=== PATIENT | female | born 1945 | race African-American/Black ===

== ENCOUNTER 2016-10-04 12:08 | Inpatient (IN) | payer OTHER ==
--- NOTE | ~2016-10-04 | CO ---
Unit #: [id number] #: [id number] Patient: CHASTITY BARRAGAN [id number] [facility]. [place], [place] [address] [id number] I MR#: [id number] NAME: CHASTITY BARRAGAN ROOM: [facility] Age: 71 Sex: F Admission Date: 10/04/2016 : 1945 Attending Physician: Nancy Gil M.D. CONSULTATION REPORT HISTORY OF PRESENT ILLNESS She is a 71-year-old female consulted to me with complaints of elevated hemoglobin. She is very pleasant lady with a history of hypertension and asthma, who came to the emergency room with shortness of breath and chest pain. This has been progressed over few days. 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 She has been having pain on the right side radiating to the back associated with worsening shortness of breath. She has had problems with this pain starting two years ago. At that time, she had severe pain in the right side of her chest radiating to the back, with tachycardia and shortness of breath. She did not seek treatment for that. Eventually, the pain went away. She has had progressive shortness of breath and came into the hospital to be evaluated. In the hospital emergency room, she was evaluated by CT scan and no pulmonary embolus was seen; although, she had marked right-sided heart dilation and was noted to have an elevated hemoglobin and was admitted. Additionally, she was hypoxic in the emergency room, the sats were 55% on room air and she is admitted for care. PAST MEDICAL HISTORY 1. Hypertension. 2. Asthma, that have been documented. PAST SURGICAL HISTORY None. ALLERGIES No known drug allergies. MEDICATIONS None. SOCIAL HISTORY No history of tobacco use. No alcohol use. No drug use. She has a supportive family, son and daughter with her. FAMILY HISTORY Positive for hypertension. REVIEW OF SYSTEMS Positive; 1. For the shortness of breath. 2. Positive for the right-sided discomfort especially right upper quadrant and back discomfort. Unit #: [id number] #: [id number] Patient: CHASTITY BARRAGAN 12-points is otherwise negative on the review of systems except for some scleral icterus. PHYSICAL EXAMINATION GENERAL: Shows a well-developed, well-nourished lady, in no acute distress. VITAL SIGNS: Her pulse is 112, respirations are 22, she had a pressure currently of 100 systolic. LUNGS: Show decreased breath sounds. HEENT: Eyes do show some scleral icterus. Pupils are equal. Mouth is moist. Hearing is intact. NECK: Shows normal JVD, increased JVP in the neck. ABDOMEN: Bit distended. May be some ascites as well; although, that is questionable. It is not definitive. EXTREMITIES: No clubbing noted. She has cool extremities. NEUROLOGIC: She is awake, alert, and oriented to person, place, and time. PSYCHIATRIC: Normal mood, judgment, and affect, and insight. ASSESSMENT 1. A very pleasant lady with a diagnosis of chest pain, but looks like a right-sided heart failure. 2. She has an elevated hemoglobin and history of asthma and we have ordered test to look for polycythemia; although, her white count was normal. Her platelets are low. This certainly does not look like somebody, who has an active myeloproliferative and we are going to check the labs to prove that before we start with phlebotomy. 3. She has low platelets and I wonder about liver disease in her and a bit of hypertension, , and we will work this up. PLAN 1. Plan is to see if we can get her worked up for the polycythemia. 2. We are going to go ahead and workup the low platelets to see if we can get answer there. I would like to thank everyone for the consult. Dictated by... Frederick Morales M.D. SHREE/bridgett TD: 10/06/2016 13:05 JOB #: [id number] CONSULTATION REPORT X X CONSULTATION REPORT
--- NOTE | ~2016-10-04 | US5 ---
[facility] A Service of [facility] RADIOLOGY TEXT RESULTS PATIENT: CHASTITY BARRAGAN LOCATION: CICCU3 CICCU3-20 : [birth year] UNIT #: [id number] AGE: [address]: Nancy Gil MD SEX: F ORDER DR: [id number] [facility] [address] [facility]. [place], [place] [address] [id number] I MR#: [id number] #: [id number] NAME: CHASTITY BARRAGAN : 1945 SEX: F STUDY DATE/TIME: 10/06/2016 8:35 UNIT: C3A PCU ROOM: [facility] STUDY DESCRIPTION: US Abdominal Complete Attending Physician: Nancy Gil M.D. Ordering Physician: Frederick Morales M.D. Primary Care Physician: Primary Care Physician No MEDICAL IMAGING REPORT This report is preliminary unless electronic signature is present EXAM Abdominal ultrasound INDICATION Elevated liver enzyme levels. PROCEDURE Lambert-scale and Doppler imaging of the abdomen. COMPARISON None FINDINGS Submitted images of abdominal aorta and IVC unremarkable. Visualized portions of pancreas unremarkable. The liver measures 14.6 cm. Right kidney measures 11.4 cm. Sludge in the gallbladder. Gallbladder wall measures 4.0-5.0 mm in thickness. Left kidney measures 11.0 cm. No hydronephrosis. Spleen measures 8.7 cm. Question sludge in the gallbladder, with mild gallbladder wall thickening which is nonspecific. Correlate for any clinical suspicion of acute cholecystitis. The common duct is not well seen on this study but is not visually dilated. Dictated by... Cyril Ware M.D. THIS IS AN ELECTRONICALLY VERIFIED REPORT Cyril Ware M.D. at 10/06/2016 4:52 PM JACQUELINE/alana TD: 10/06/2016 11:37 JOB #: [id number] [facility] A Service [facility] RADIOLOGY TEXT RESULTS PATIENT: CHASTITY BARRAGAN LOCATION: CICCU3 CICCU3-20 : [birth year] UNIT #: [id number] AGE: [address]: Nancy Gil MD SEX: F ORDER DR: MEDICAL IMAGING REPORT COPY
--- NOTE | ~2016-10-04 | EKG ---
PATIENT: CHASTITY BARRAGAN UNIT #: [id number] Ventricular Rate: 101 BPM Atrial Rate: 101 BPM P-R Interval: 188 ms QRS Duration: 74 ms Q-T Interval: 366 ms QTC Calculation(Bezet): 474 ms P [place]: 37 degrees Calculated R [place]: 103 degrees Calculated T [place]: 0 degrees Diagnosis Line: Sinus tachycardia Diagnosis Line: Rightward axis Diagnosis Line: T wave abnormality, consider anterior ischemia Diagnosis Line: Abnormal ECG Diagnosis Line: When compared with ECG of 04-OCT-2016 11:28, Diagnosis Line: (unconfirmed) Diagnosis Line: T wave inversion less evident in Inferior leads Diagnosis Line: Nonspecific T wave abnormality no longer evident Diagnosis Line: in Lateral leads Diagnosis Line: Confirmed by MELVINA GARCIA MD ([id number]) on Diagnosis Line: 10/05/2016 10:54:58 PM INTERPRETING MD: CHELLE
--- NOTE | ~2016-10-04 | CR72 ---
[facility] A Service of [facility] RADIOLOGY TEXT RESULTS PATIENT: CHASTITY BARRAGAN LOCATION: [facility] : [birth year] UNIT #: [id number] AGE: [address]: JOHANA YODER MD SEX: F ORDER DR: [id number] [facility]. [place], [place] [address] [id number] I MR#: [id number] Acc #: [id number] NAME: CHASTITY BARRAGAN : 1945 SEX: F STUDY DATE/TIME: 10/04/2016 11:43 UNIT: [facility] PCU ROOM: [facility] STUDY DESCRIPTION: CR Chest Single View Portable Attending Physician: Johana Yoder M.D. Ordering Physician: Chidi Dupree M.D. Primary Care Physician: No Primary Care Physician MEDICAL IMAGING REPORT This report is preliminary unless electronic signature is present EXAM AP portable chest. DATE OF EXAM 10/04/2016 HISTORY 71-year-old female in the ED complaining of 4-day history of shortness of air, chest pain, cough and weakness. TECHNIQUE AP portable upright chest x-ray. FINDINGS The exam shows shallow lung expansion with minimal bibasilar atelectasis. Lungs otherwise clear. No visible airspace consolidation or pleural effusion. Mild cardiomegaly. IMPRESSION 1. No definite active disease. 2. Mild cardiomegaly. Dictated by... Tay Dobbs M.D. THIS IS AN ELECTRONICALLY VERIFIED REPORT Tay Dobbs M.D. at 10/05/2016 5:55 AM JIM/hansa TD: 10/04/2016 15:17 JOB #: [id number] MEDICAL IMAGING REPORT [facility] A Service of [facility] RADIOLOGY TEXT RESULTS PATIENT: CHASTITY BARRAGAN LOCATION: [facility] : 47 UNIT #: [id number] AGE: [address]: JOHANA YODER MD SEX: F ORDER DR: COPY
--- NOTE | ~2016-10-04 | EKG ---
PATIENT: CHASTITY BARRAGAN UNIT #: [id number] Ventricular Rate: 98 BPM Atrial Rate: 98 BPM P-R Interval: 172 ms QRS Duration: 68 ms Q-T Interval: 346 ms QTC Calculation(Bezet): 441 ms P [place]: 69 degrees Calculated R [place]: 84 degrees Calculated T [place]: 18 degrees Diagnosis Line: Normal sinus rhythm Diagnosis Line: Possible Left atrial enlargement Diagnosis Line: T wave abnormality, consider anterior ischemia Diagnosis Line: Abnormal ECG Diagnosis Line: No previous ECGs available Diagnosis Line: Confirmed by SPIKE RAMÍREZ MD ([id number]) on Diagnosis Line: 10/14/2016 3:55:48 PM INTERPRETING MD: DESIREE VAZQUEZ
--- NOTE | ~2016-10-04 | EKG ---
PATIENT: CHASTITY BARRAGAN UNIT #: [id number] Ventricular Rate: 82 BPM Atrial Rate: 82 BPM P-R Interval: 148 ms QRS Duration: 80 ms Q-T Interval: 448 ms QTC Calculation(Bezet): 523 ms P [place]: 73 degrees Calculated R [place]: 89 degrees Calculated T [place]: 21 degrees Diagnosis Line: Normal sinus rhythm Diagnosis Line: Right atrial enlargement Diagnosis Line: T wave abnormality, consider inferior ischemia Diagnosis Line: T wave abnormality, consider anterior ischemia Diagnosis Line: Prolonged QT Diagnosis Line: Abnormal ECG Diagnosis Line: When compared with ECG of 05-OCT-2016 07:49, Diagnosis Line: Nonspecific T wave abnormality now evident in Diagnosis Line: Lateral leads Diagnosis Line: Confirmed by MICHELLE HIGGINBOTHAM MD ([id number]) on 10/06/2016 Diagnosis Line: 7:11:14 AM INTERPRETING MD: ANAHY VAZQUEZ
--- NOTE | ~2016-10-04 | CO ---
Unit #: [id number] #: [id number] Patient: CHASTITY BARRAGAN [id number] [facility]. [place], [place] [address] [id number] I MR#: [id number] NAME: CHASTITY BARRAGAN ROOM: 337 Age: 71 Sex: F Admission Date: 10/04/2016 : 1945 Attending Physician: Marcelina Yoder M.D. Consultation Date: 10/04/2016 CONSULTATION REPORT REASON FOR CONSULTATION Elevated troponin. HISTORY OF PRESENT ILLNESS This is a 71-year-old female admitted with chest pain that occurred about 4 days ago and localized to her right anterior chest underneath her right breast and radiated to her back and it did radiate to her right neck. She had associated shortness of breath, however, no nausea, no vomiting, no diaphoresis, no syncope, but did complain of some dizziness. She came over from [place]. She is from [facility] in [facility] [place] [facility] and she came to the [facility] in 04/2007 and has been living in [place] up until last 10/2015 where she moved to [place]. She has only known history of hypertension. She was on medication for her high blood pressure, however, due to some financial insurance issues, she is currently not on any blood pressure medicine. She is a non-Romanian speaking patient and she does speak Swahili. Her home language is [place], however, there was no government relations analyst used as her family interpreted for my interview. She reported to me all her symptoms started about 4 days ago, she had chest pain that occurred mostly on her right side under her right breast and right side of her neck and then that occurred for 4 days and she started having coughing about 2 days ago also had stomachache and generalized pain especially to her back between her shoulder blade area that was worse with coughing. She reports her pain is sharp and stabbing in nature and it is worse with exertion. It began around 6:00 or 7:00 in the morning 4 days ago on 09/30/2016. She had just woken up and had gone into the bathroom to get ready and when the pain started, it made worse with coughing and made worse with movement. She rested at home and the pain was unrelieved for about a day and a half before it got worse due to her developing cough. She rated her pain as 7/10. She had no shortness of breath with that. No cardiac workup that I can find on record review. She did not follow up with doctor. HOME MEDICATIONS None. ALLERGIES No known drug allergies. FAMILY HISTORY She was from her family in [place] in 1971 and has not seen her family, so her family history is completely unknown to her. Unit #: [id number] #: [id number] Patient: CHASTITY BARRAGAN SOCIAL HISTORY She is a very inactive at home and has become more inactive over the last couple of months. Her son reported that she never really gets out of the house and walk much, but she does do light housework around the house with no problems. She is a never smoker and does deny any alcohol and illicit drug use. REVIEW OF SYSTEMS As noted above in the HPI. PHYSICAL EXAMINATION VITAL SIGNS: Temperature 98.3, pulse 100, respiratory rate of 20, blood pressure of 171/100. GENERAL: She is sitting up in bed, in no acute distress. Family is present. NECK: Supple with JVD noted. No carotid bruits noted. HEENT: Head is normocephalic, atraumatic with oral mucosal membranes pink and moist. Pupils are equal, round, and reactive to light and accommodation. SKIN: Cool. CHEST: Shows bilateral rhonchi and rales in the bases. CARDIOVASCULAR: She has S1, S2. Regular rate and rhythm. No murmurs, gallops, or rubs noted. ABDOMEN: Distended and tender to her right quadrant. No hepatomegaly. No hepatojugular reflux. EXTREMITIES: Have very weak pulses and no leg edema noted. DIAGNOSTIC STUDIES IMAGING STUDIES: Single view of chest x-ray on 10/04/2016, no definite active disease, mild cardiomegaly. CT of the chest to rule out PE was done on 10/05/2016 to note was negative for PE, but did show evidence of inflammatory and obstructive airway disease with central bronchial wall thickening, mild multifocal air trapping, and possible mild mucoid opacification of a central left lower lobe bronchi. Heart size was normal. There was no pericardial effusion to note. CARDIOVASCULAR STUDIES: EKG shows sinus tachycardia with rightward axis, T-wave abnormality, which is T-wave inversion in the lateral leads, rate of 111. LABORATORY RESULTS: Include a BNP of 519. Troponin of 0.52. Sodium 140, potassium 4.5, chloride 93, CO2 is 40, BUN 40, creatinine 1, glucose 214, elevated LFT including AST of 342, ALT of 273, alkaline phosphatase 99, cholesterol 123, triglycerides 181, LDL 71, HDL 16. D-dimer elevated at 2582. Ibuyz-bp-vqms troponin in the ER was 0.23. WBC 9.4, hemoglobin 17.4, hematocrit 56.6, platelet count 109. Influenza A and B were both checked and both negative. IMPRESSION 1. Acute coronary syndrome. 2. New-onset of congestive heart failure. 3. Elevated D-dimer, but pulmonary embolism has been ruled out. 4. Polycythemia with unknown etiology. 5. Peripheral arterial disease with no very weak to absent pedal pulses. 6. Hepatic congestion. PLAN Unit #: [id number] #: [id number] Patient: CHASTITY BARRAGAN Cardiology is treating this as an acute coronary syndrome with elevated troponin, but all troponins have been less than 0.5. We planned to do a right and left heart cath on her on Thursday10/06/2016 and we ordered a 2D echo, which showed an EF of 60%, mild LVH, grade 1 diastolic dysfunction, severely enlarged right atrium, moderately enlarged right ventricle with an RVSP of 64 consistent with severe pulmonary hypertension, aortic valve leaflets are sclerotic with no stenosis, tricuspid valve is normal, vduzgnnf-nc-brywyz tricuspid regurgitation, no evidence of any pericardial effusion. We will start her on full coagulation including aspirin and statin and control her hypertension with beta-alma and lisinopril. Hematology has been consulted and is now following as is GI. Hematology consulted for polycythemia. We will give her gentle diuresis with Lasix and continue to follow her through hospitalization. Thank you for this consult. Dictated by... Katy Winston APRN for Td Johnson TD: 10/06/2016 03:20 JOB #: [id number] CONSULTATION REPORT X X CONSULTATION REPORT
--- NOTE | ~2016-10-04 | HP ---
Unit #: [id number] #: [id number] Patient: CHASTITY BARRAGAN [id number] [address] [id number] I MR#: [id number] NAME: CHASTITY BARRAGAN ROOM: 337 Age: 71 Sex: F Admission Date: 10/04/2016 : 1945 Attending Physician: Marcelina Yoder M.D. Primary Care Physician: No Primary Care Physician HISTORY AND PHYSICAL CHIEF COMPLAINT Shortness of breath and dyspnea. HISTORY OF PRESENT ILLNESS The patient is a 71-year-old -[place] Zeal[place] female with history of hypertension and asthma, brought to the emergency room complaining of worsening shortness of breath. The patient speaks the language [place] and the history is obtained by speaking to the patient's son at the bedside and speaking with the ER physician and RN. The patient has been in the [facility] for the last nine years. The patient has been having sharp chest pain mainly on the right side radiating to the back associated with worsening shortness of breath. The patient was unable to tolerate the worsening shortness of breath this morning and presented to the emergency room. The patient was found to be hypoxic in the emergency room with sats 55% at room air and they went up to 90% with four liters of nasal cannula. The patient also complains of chest pain and denies any productive cough. The patient is being admitted for the above reason. The patient denies any fever, chills, nausea. The patient vomited times only once. The patient denies any palpitation or diaphoresis. PAST MEDICAL HISTORY History of hypertension and asthma. PAST SURGICAL HISTORY None. ALLERGIES No allergies. HOME MEDICATIONS None. SOCIAL HISTORY No history of smoking cigarettes and drinking alcohol, any illicit drug abuse. FAMILY HISTORY Positive for high blood pressure. REVIEW OF SYMPTOMS A 14-point review of symptoms was performed and only pertinent positives findings are described above, remaining are negative. PHYSICAL EXAMINATION Unit #: [id number] #: [id number] Patient: CHASTITY BARRAGAN GENERAL APPEARANCE: The patient is sitting on the bedside not in acute distress. VITAL SIGNS: Temperature 98.3. Pulse 112. Respiratory 20. Blood pressure 167/85. Sating 55% at room air and went up to 90% with four liters of nasal cannula. HEENT: Head: Atraumatic, normocephalic. Pupils equal, round and reacting to light and accommodation. Extraocular movements are intact. Dry mucous membrane. NECK: Supple. LUNGS: Decreased air entry at the bases. Positive for wheezing at the right side and positive questionable rub at the right lower base. HEART: Regular rate and rhythm. Positive for murmurs. ABDOMEN: Soft. Positive bowel sounds. EXTREMITIES: No cyanosis. No clubbing. NEUROLOGIC: Alert, awake, oriented. No gross focal motor deficit. DIAGNOSTIC STUDIES LABORATORY: Glucose 214, BUN 40, creatinine one, sodium 140, potassium 4.5, chloride 93, bicarb 40, albumin 3.1, direct bilirubin 0.4, AST 342, ALT 273, alkaline phosphatase 99. BNP 519. Troponin 0.23. WBC 9.4, hemoglobin 17.4, hematocrit 56.6, platelets 109. IMAGING: Chest x-ray shows no definite active disease, mild cardiomegaly. CARDIOVASCULAR: EKG shows sinus tachycardia at a rate of 111 beats per minute and the OK interval of 142. T wave abnormal in the inferior leads concerning for the acute coronary syndrome and the QTC of 443. ASSESSMENT 1. Chest pain, likely active coronary syndrome. 2. Hypoxia with asthma exacerbation, 55% at room air. 3. Hypertension. 4. Questionable polycythemia. PLAN Admit the patient to inpatient with telemetry. Continue with ACS protocol with Lovenox 1 mg/kg and aspirin and beta alma with metoprolol, lisinopril and a statin. The patient is scheduled for the cath on Thursday and continue with the pain medication with morphine. The patient will be continuing on Solu-Medrol and DuoNeb and check the D-dimer to rule out PE and echocardiogram in the morning. I appreciate Cardiology consult. Continue with the troponins serially and sliding scale low dose and further recommendations will follow as more lab results are available. Dictated by Td Guerrero TD: 10/04/2016 17:31 JOB #: [id number] Unit #: [id number] #: [id number] Patient: CHASTITY BARRAGAN HISTORY AND PHYSICAL X X HISTORY AND PHYSICAL
--- NOTE | ~2016-10-04 | CO ---
Unit #: [id number] #: [id number] Patient: CHASTITY BARRAGAN [id number] [place], [place] [address] [id number] I MR#: [id number] NAME: CHASTITY BARRAGAN ROOM: 337 Age: 71 Sex: F Admission Date: 10/04/2016 : 1945 Attending Physician: Marcelina Yoder M.D. Consultation Date: 10/04/2016 CONSULTATION REPORT REASON FOR CONSULTATION Hypoxia. HISTORY OF PRESENT ILLNESS This is a pleasant 71-year-old female from [facility], who presented to the emergency room with a few day history of shortness of breath and coughing with no sputum production. Patient has had some sore throat but no fever or chills. Patient never smoked but she was diagnosed with asthma many years ago. She used to be on some inhalers but not anymore. Last asthma attack was in 1996. In the emergency room, patient was found to be severely hypoxic with saturations in the mid 50s. She is currently on four liters nasal cannula, and she appears more comfortable. REVIEW OF SYSTEMS A 12-point review of systems was obtained and was negative except for what was mentioned in the History of Present Illness. PAST MEDICAL HISTORY 1. Hypertension. 2. Asthma. PAST SURGICAL HISTORY None. ALLERGIES No known drug allergies. HOME MEDICATIONS Patient has no insurance and does not take any medication. SOCIAL HISTORY No history of alcohol, drug abuse, or smoking. FAMILY HISTORY Hypertension. PHYSICAL EXAMINATION GENERAL: The patient is currently in bed and comfortable. Her is at bedside, and I spoke to her through an diplomatic interpreter/translator. VITAL SIGNS: Temperature 97.8, respiratory rate 21, and O2 saturation 93% on 4 liters nasal cannula. HEENT: Atraumatic, normocephalic. PERRLA. EOMI. NECK: Supple. No JVD. No lymphadenopathy. CHEST: Decreased breath sounds bilaterally with bilateral wheezing and Unit #: [id number] #: [id number] Patient: CHASTITY BARRAGAN some mild rhonchi at the bases. HEART: S1 and S2. No murmur, gallops, or rubs. ABDOMEN: Soft, nontender. Bowel sounds are positive. No hepatosplenomegaly. EXTREMITIES: No edema or cyanosis. SKIN: No rashes. CENTRAL NERVOUS SYSTEM: Awake and alert. No focal motor/sensory deficits. DIAGNOSTIC STUDIES LABORATORY: Creatinine 0.9, potassium 5.6, and bicarb 33. White blood count 9.4 and hemoglobin 17.4. IMAGING: Chest x-ray is negative for infiltrate. ASSESSMENT 1. Acute hypoxic respiratory failure. 2. Asthma exacerbation. 3. Hypertension. 4. Erythrocytosis. 5. Cardiomegaly. PLAN 1. Patient is hemodynamically stable on nasal cannula. Her baseline is room air. 2. I will titrate the oxygen down as tolerated. 3. Bronchodilator, IV steroids, and mucolytics. 4. IV antibiotics. 5. A 2D echocardiogram to evaluate for pulmonary hypertension. 6. DVT prophylaxis. 1. Dictated by... Td Abbasi TD: 10/05/2016 21:34 JOB #: [id number] CONSULTATION REPORT X PASCALE BRIDGES MD X CONSULTATION REPORT
--- NOTE | ~2016-10-04 | EKG ---
PATIENT: CHASTITY BARRAGAN UNIT #: [id number] Ventricular Rate: 111 BPM Atrial Rate: 111 BPM P-R Interval: 142 ms QRS Duration: 74 ms Q-T Interval: 326 ms QTC Calculation(Bezet): 443 ms P Nolan: 72 degrees Calculated R Nolan: 85 degrees Calculated T Nolan: -84 degrees Diagnosis Line: Sinus tachycardia Diagnosis Line: Right atrial enlargement Diagnosis Line: Poor R wave progression questionable lead position Diagnosis Line: or body habitus Diagnosis Line: Nonspecific T wave abnormality Diagnosis Line: Abnormal ECG Diagnosis Line: No previous ECGs available Diagnosis Line: Confirmed by MELVINA GARCIA MD ([id number]) on Diagnosis Line: 10/05/2016 10:43:10 PM INTERPRETING MD: CHELLE
--- NOTE | ~2016-10-04 | DS ---
Unit #: [id number] #: [id number] Patient: CHASTITY BARRAGAN [id number] [facility]. [place], [place] [address] [id number] I MR#: [id number] NAME: CHASTITY BARRAGAN ROOM: 338 Age: 71 Sex: F Admission Date: 10/04/2016 : 1945 Discharge Date: 10/13/2016 Attending Physician: Max Witt M.D. DISCHARGE SUMMARY HISTORY OF PRESENT ILLNESS AND HOSPTIAL COURSE Please see H and P for complete details of initial part of hospital stay. The patient was originally admitted secondary to shortness of breath as well as the dyspnea. She does have a language barrier and only speaks Swahili and therefore was difficult in the initial part of her hospital stay for appropriate history. However, she had stated that she had developed chest pain as well as difficulty with breathing for approximately 4 to 5 days prior to admission. In regard to the same, consultation was placed to Dr. Dillon. She underwent routine laboratory studies, which did reveal elevated troponins as well as concern for polycythemia. A consultation was placed to Dr. Terry secondary to respiratory distress as well. The patient eventually was placed in the ICU secondary to respiratory distress. She underwent a 2D echocardiogram, which had revealed ejection fraction 60% with severe tricuspid regurgitation as well as right-sided increased pulmonary pressures and pulmonary hypertension. There was a questionable left to right intracardiac shunt, which was noted. Services continue to follow the patient through her hospital course on 10/06/2016. She underwent cardiac catheterization at the recommendation of Dr. Roberson, which was normal coronaries. Afterwards she began developing post cardiac cath respiratory distress. She was intubated and placed on BiPAP afterwards as well as transition on nasal cannula and subsequently room air. It seems likely that secondary to her asthma as well as language barrier, it was difficult for her to state when she was not able to breathe. She has otherwise done well from a pulmonary standpoint as she has been weaned from IV Solu-Medrol, IV antibiotics, and p.o. medications. In regard to her history of thrombocytopenia, Dr. Ellis and meenu from Hematology was consulted as well. No acute management was done while here. The patient underwent a cardiac MRI yesterday, which preliminary report Unit #: [id number] #: [id number] Patient: CHASTITY BARRAGAN did not show the aforementioned hzifn-cm-awmp intracardiac shunt. From a cardiac standpoint, she appears currently stable. She will require close outpatient followup at the time of discharge especially in regard to her asthma as well as her cardiac condition. She does require outpatient sleep study secondary to severe pulmonary hypertension as well as ovbyqlql-zq-uayvks tricuspid regurgitation. FINAL DISCHARGE DIAGNOSES 1. Acute hypoxic respiratory failure on admission. 2. Asthma exacerbation. 3. Acute btz-WM-nwrbkvosa myocardial infarction type 2. Peak troponin 0.54. 4. Post cardiac catheterization respiratory distress, now resolved. 5. Severe pulmonary hypertension. 6. Voyyarrd-sm-lzcexb tricuspid regurgitation. 7. Sinus tachycardia. 8. Elevated LFTs likely secondary to passive hepatic congestion from heart failure/pulmonary hypertension. 9. Thrombocytopenia likely chronic with baseline platelets are close to 60 to 75. 10. Polycythemia with hematocrit baseline close to 48. DISCHARGE INSTRUCTIONS 1. Follow up with Dr. Roberson in 2 to 4 weeks post discharge. 2. Follow up with by Dr. Stiles and associates for outpatient sleep study evaluation in 2 to 4 weeks. 3. Follow up with PCP in 7 to 10 days. FINAL DISCHARGE MEDICATIONS Lopressor 12.5 mg p.o. b.i.d., Lasix 40 mg p.o. daily, Tylenol 650 mg p.o. q.6 p.r.n., lisinopril 10 mg p.o. q.h.s., aspirin 81 mg p.o. daily, Medrol Dosepak take as directed. Time spent in the coordination of this discharge chart review and/or management, discussion with the patient greater than 45 minutes. Dictated by... Td Kramer/bridgett TD: 10/15/2016 08:25 JOB #: [id number] DISCHARGE SUMMARY X Brandi Silva MD X DISCHARGE SUMMARY
--- NOTE | ~2016-10-04 | CR72 ---
[facility] A Service of [facility] & [facility] RADIOLOGY TEXT RESULTS PATIENT: CHASTITY BARRAGAN LOCATION: [address] : [birth year] UNIT #: [id number] AGE: [address]: Brandi Silva MD SEX: F ORDER DR: [id number] [facility] [address] [place], [place] [address] [id number] I MR#: [id number] Acc #: [id number] NAME: CHASTITY BARRAGAN : 1945 SEX: F STUDY DATE/TIME: 10/07/2016 9:25 UNIT: [facility] ROOM: [facility] STUDY DESCRIPTION: CR Chest Single View Portable Attending Physician: Brandi Silva M.D. Ordering Physician: Abby Yoder M.D. Primary Care Physician: Primary Care Physician No MEDICAL IMAGING REPORT This report is preliminary unless electronic signature is present EXAM Portable chest 10/07/2016 INDICATION Shortness of air, hypoxia, chest pain and cough since October 04. FINDINGS AP portable chest compared with 10/05/2016. Right arm PICC in the SVC. Heart size stable. There is some mild infiltrate or atelectasis in the lung bases. The lungs are otherwise clear. No pneumothorax. IMPRESSION PICC line tip in the SVC. Very mild infiltrate or atelectasis noted in the bases. Dictated by... Rishi Winkler Jr., M.D. THIS IS AN ELECTRONICALLY VERIFIED REPORT Rishi Winkler Jr., M.D. at 10/07/2016 3:50 PM TAVO/maurice TD: 10/07/2016 10:50 JOB #: [id number] MEDICAL IMAGING REPORT COPY
--- NOTE | ~2016-10-04 | CT16 ---
[facility] A Service of [facility] & [facility] RADIOLOGY TEXT RESULTS PATIENT: CHASTITY BARRAGAN LOCATION: C3A 337- : [birth year] UNIT #: [id number] AGE: [address]: JOHANA YODER MD SEX: F ORDER DR: [id number] [facility] [address] [facility]. [place], [place] [address] [id number] I MR#: [id number] Acc #: [id number] NAME: CHASTITY BARRAGAN : 1945 SEX: F STUDY DATE/TIME: 10/05/2016 5:49 UNIT: C3A PCU ROOM: [facility] STUDY DESCRIPTION: CT Angio Chest for PE Attending Physician: Johana Yoder M.D. Ordering Physician: Keagan Benavidez M.D. Primary Care Physician: Primary Care Physician No MEDICAL IMAGING REPORT This report is preliminary unless electronic signature is present EXAM CT chest with contrast, pulmonary arteriography protocol, 10/05/2016. HISTORY 71-year-old female admitted through the ED yesterday complaining of 4-day history of shortness of air, chest pain and cough. Hypoxia and asthma are reported. Elevated D-dimer. TECHNIQUE CT examination of the chest was performed with IV contrast using pulmonary arteriography protocol. 3-D CTA images of the pulmonary arteries were reformatted. This CT exam was performed with one or more of the following radiation dose reduction techniques: automatic exposure control, adjustment of mA and/or kV according to patient size, and iterative reconstruction. FINDINGS No pulmonary embolism is demonstrated. Thoracic aorta is normal in caliber. Central pulmonary arteries are mildly enlarged, and there is right heart chamber dilatation with reflux of venous contrast into distended upper abdominal IVC and hepatic veins, findings suggesting elevated right heart pressures. Lung images are degraded by patient respiratory motion artifact. There is central bronchial wall thickening and multifocal air trapping suggesting inflammatory airways disease, and there may be mild mucoid opacification of a few left lower lobe central pulmonary bronchi. No peripheral pulmonary infiltrate or pleural effusion is seen. There is no pericardial effusion. No suspicious mass or adenopathy within the chest. Limited images through the uppermost abdomen are unremarkable. STS. [facility] A Service of [facility] & [facility] RADIOLOGY TEXT RESULTS PATIENT: CHASTITY BARRAGAN LOCATION: C3A 337-01 : [birth year] UNIT #: [id number] AGE: [address]: JOHANA YODER MD SEX: F ORDER DR: IMPRESSION 1. No evidence of acute pulmonary embolism. 2. Evidence of elevated right heart pressures including right heart chamber dilatation, mild central pulmonary artery enlargement and reflux of IV contrast into distended hepatic veins and upper abdominal IVC, correlate clinically. Heart size is normal, there is no pericardial effusion. 3. Evidence of inflammatory/obstructive airways disease. This includes central bronchial wall thickening, mild multifocal air trapping and possible mild mucoid opacification of a few central left lower lobe bronchi. 4. The lungs are otherwise clear. No airspace consolidation or pleural effusion. Dictated by... Tay Dobbs M.D. THIS IS AN ELECTRONICALLY VERIFIED REPORT Tay Dobbs M.D. at 10/05/2016 3:06 PM Gavi TD: 10/05/2016 06:35 JOB #: [id number] MEDICAL IMAGING REPORT COPY
--- NOTE | ~2016-10-04 | CR72 ---
[facility] A Service of [facility] RADIOLOGY TEXT RESULTS PATIENT: CHASTITY BARRAGAN LOCATION: CICCU3 CICCU3-20 : [birth year] UNIT #: [id number] AGE: [address]: Brandi Silva MD SEX: F ORDER DR: [id number] [facility] [address] [facility] [address] [place], [place] [address] [id number] I MR#: [id number] Acc #: [id number] NAME: CHASTITY BARRAGAN : 1945 SEX: F STUDY DATE/TIME: 10/05/2016 0:27 UNIT: C3A PCU ROOM: [facility] STUDY DESCRIPTION: CR Chest Single View Portable Attending Physician: Marcelina Yoder M.D. Ordering Physician: Physician Non-Staff Primary Care Physician: No Primary Care Physician MEDICAL IMAGING REPORT This report is preliminary unless electronic signature is present EXAM Portable AP view of the chest COMPARISON October 04, 2016 INDICATIONS A 71-year-old female with hypoxia today. PICC placement today. FINDINGS No evidence of pneumothorax or pleural effusion. No consolidative pneumonia. There is new right upper extremity PICC with the tip terminating in the upper SVC. There is top normal heart size. There is minimal calcification of the aortic arch. There is diffuse prominence of the interstitium which may represent mild vascular congestion. No overt pulmonary edema. IMPRESSION New right upper extremity PICC tip in upper SVC. No evidence of complication. Dictated by... Mendez Hooper M.D. THIS IS AN ELECTRONICALLY VERIFIED REPORT Mendez Hooper M.D. at 10/08/2016 10:18 PM ISSAC/shane TD: 10/05/2016 04:33 [facility] A Service [facility] RADIOLOGY TEXT RESULTS PATIENT: CHASTITY BARRAGAN LOCATION: CICCUJennifer CICCU3-20 : [birth year] UNIT #: [id number] AGE: [address]: Brandi Silva MD SEX: F ORDER DR: JOB #: [id number] MEDICAL IMAGING REPORT COPY
[2016-10-04 12:10] LABS: POC - CKMB 6.7 ng/mL (0.0-7.9); POC - TROPONIN 0.23 ng/mL (<=0.05)
[2016-10-04 12:17] LABS: BASOPHIL% 0.2 % (0-2.5); EOSINOPHIL% 0.1 % (0.0-7.0); HEMATOCRIT 56.6 % (35.0-45.0); HEMOGLOBIN 17.4 gm/dL (12.0-16.0); LYMPHOCYTE# 1.4 X10e3 (1.0-3.5); LYMPHOCYTE% 14.6 % (17.0-45.0); MEAN CELL VOLUME 88.9 FL (83-96); MEAN CORPUSCULAR HEMOGLOBIN 27.3 PG (28-34); MEAN CORPUSCULAR HGB CONC 30.7 g/dL (30-36); MEAN PLATELET VOLUME 9.8 FL (6.5-11.5); MONOCYTE# 0.8 X10e3 (0-1.0); MONOCYTE% 8.2 % (3.0-12.0); NEUTROPHIL# 7.2 X10e3 (1.5-7.1); NEUTROPHIL% 76.9 % (40-75); PLATELET COUNT 109 X10e3 (140-420); RED BLOOD COUNT 6.37 X10e (3.90-5.30); RED CELL DISTRIBUTION WIDTH 14.8 % (11.0-15.5); WHITE BLOOD COUNT 9.4 X10e3 (4.0-10.5)
[2016-10-04] MEDS ORDERED: NO MEDICATIONS (12:18)
[2016-10-04 12:41] LABS: ALBUMIN SERUM 3.1 g/dL (3.5-5.0); ALKALINE PHOSPHATASE 99 U/L (32-92); ALT (SGPT) 273 U/L (10-40); AST (SGOT) 342 U/L (10-42); BILIRUBIN, DIRECT 0.4 mg/dL (0.0-0.2); BILIRUBIN,INDIRECT 0.5 mg/dL (0.0-0.9); BILIRUBIN,TOTAL 0.9 mg/dL (0.2-2.0); BLOOD UREA NITROGEN 40 mg/dL (9-23); CALCIUM SERUM 10.2 mg/dL (8.4-10.2); CARBON DIOXIDE 40 mmol/L (22-31); CHLORIDE 93 mmol/L (100-111); GLOM FILT RATE Estimated ABOVE60 mL/min (>60); GLUCOSE FASTING 214 mg/dL (70-110); POTASSIUM 4.5 mmol/L (3.5-5.1); PROTEIN TOTAL SERUM 7.3 g/dL (6.0-8.3); SODIUM 140 mmol/L (135-145)
[2016-10-04 12:50] LABS: DIFF IND NO
[2016-10-04 18:48] LABS: %MB 17.6 % (0.0-4.0)
[2016-10-05 00:21] LABS: %MB 19.6 % (0.0-4.0); MB 18.6 ng/ml
[2016-10-05 05:16] LABS: INFLUENZA A NEG (NEG); INFLUENZA B NEG (NEG)
[2016-10-05 05:47] LABS: BASOPHIL% 0.1 % (0-2.5); DIFF IND NO; HEMOGLOBIN 16.7 gm/dL (12.0-16.0); LYMPHOCYTE# 0.6 X10e3 (1.0-3.5); MEAN CELL VOLUME 91.4 FL (83-96); MEAN CORPUSCULAR HEMOGLOBIN 27.3 PG (28-34); MEAN CORPUSCULAR HGB CONC 29.9 g/dL (30-36); MEAN PLATELET VOLUME 10.7 FL (6.5-11.5); MONOCYTE# 0.2 X10e3 (0-1.0); MONOCYTE% 2.2 % (3.0-12.0); NEUTROPHIL# 8.3 X10e3 (1.5-7.1); NEUTROPHIL% 90.7 % (40-75); PLATELET COUNT 105 X10e3 (140-420); RED BLOOD COUNT 6.13 X10e (3.90-5.30); RED CELL DISTRIBUTION WIDTH 15.4 % (11.0-15.5); WHITE BLOOD COUNT 9.2 X10e3 (4.0-10.5)
[2016-10-05 08:12] LABS: CARBON DIOXIDE 33 mmol/L (22-31); CHLORIDE 94 mmol/L (100-111); SODIUM 139 mmol/L (135-145)
[2016-10-05 08:20] LABS: BLOOD UREA NITROGEN 43 mg/dL (9-23); BUN/CREATININE RATIO 47.77; CHOLESTEROL 123 mg/dL (0-200); CK TOTAL 64 IU/L (26-140); CREATININE SERUM 0.9 mg/dL (0.6-1.4); GLOM FILT RATE Estimated ABOVE60 mL/min (>60); GLUCOSE FASTING 376 mg/dL (70-110); HDL CHOLESTEROL 16 mg/dL (35-95); LDL CHOLESTEROL 71 mg/dL (-130); LDL/HDL RATIO 4 RATIO (0-4); TRIGLYCERIDES 181 mg/dL (10-160)
[2016-10-05 08:30] LABS: CALCIUM SERUM 7.9 mg/dL (8.4-10.2); POTASSIUM 5.6 mmol/L (3.5-5.1)
[2016-10-05 08:50] LABS: %MB 18.6 % (0.0-4.0); MB 11.9 ng/ml
[2016-10-05 19:14] LABS: ALBUMIN SERUM 2.4 g/dL (3.5-5.0); BILIRUBIN, DIRECT 0.4 mg/dL (0.0-0.2); BILIRUBIN,INDIRECT 0.5 mg/dL (0.0-0.9); BILIRUBIN,TOTAL 0.9 mg/dL (0.2-2.0); PROTEIN TOTAL SERUM 5.7 g/dL (6.0-8.3)
[2016-10-06 06:22] LABS: HEMATOCRIT 52.7 % (35.0-45.0); HEMOGLOBIN 15.6 gm/dL (12.0-16.0); MEAN CELL VOLUME 91.4 FL (83-96); MEAN CORPUSCULAR HEMOGLOBIN 27.1 PG (28-34); MEAN CORPUSCULAR HGB CONC 29.6 g/dL (30-36); MEAN PLATELET VOLUME 11.2 FL (6.5-11.5); RED BLOOD COUNT 5.77 X10e (3.90-5.30); RED CELL DISTRIBUTION WIDTH 16.1 % (11.0-15.5); WHITE BLOOD COUNT 12.5 X10e3 (4.0-10.5)
[2016-10-06 06:40] LABS: INR 1.3; PARTIAL THROMBOPLASTIN TIME 35.2 SECONDS (23.5-31.3); PROTHROMBIN TIME (PATIENT) 13.7 SECONDS (9.6-11.5)
[2016-10-06 07:11] LABS: CALCIUM SERUM 7.9 mg/dL (8.4-10.2); CREATININE SERUM 1.4 mg/dL (0.6-1.4); GLOM FILT RATE Estimated 47.9 mL/min (>60)
[2016-10-06 07:12] LABS: POTASSIUM 4.1 mmol/L (3.5-5.1)
[2016-10-06 18:50] LABS: ARTERIAL BLD GAS O2 SATURATION 98.6 % (90.0-100.0); ARTERIAL BLOOD GAS CARBOXY HB 0.7 %sat (0.0-9.0); ARTERIAL BLOOD GAS HCO3 38.2 mmol/L; ARTERIAL BLOOD GAS MET HB 0.8 %sat (0.0-2.0)
[2016-10-06 18:54] LABS: ARTERIAL BLOOD GAS pH 7.191 (7.350-7.450)
[2016-10-06 18:55] LABS: ARTERIAL BLOOD GAS ALLEN TEST NORMAL; ARTERIAL BLOOD GAS ART SITE LEFT RADIAL; ARTERIAL BLOOD GAS DELIVERY NON REBREATHER MASK; ARTERIAL DRAW? YES
[2016-10-06 20:52] LABS: ARTERIAL BLD GAS O2 SATURATION 94.5 % (90.0-100.0); ARTERIAL BLOOD GAS CARBOXY HB 1.3 %sat (0.0-9.0); ARTERIAL BLOOD GAS HCO3 37.6 mmol/L; ARTERIAL BLOOD GAS MET HB 0.6 %sat (0.0-2.0); ARTERIAL BLOOD GAS PO2 89.2 mmHg (80.0-100)
[2016-10-06 20:57] LABS: ARTERIAL BLOOD GAS ALLEN TEST NORMAL; ARTERIAL BLOOD GAS ART SITE LEFT RADIAL; ARTERIAL BLOOD GAS PCO2 96.3 mmHg (35.0-45.0); ARTERIAL DRAW? YES
[2016-10-06 20:58] LABS: ARTERIAL BLOOD GAS DELIVERY BIPAP 14/5
[2016-10-06 22:06] LABS: ARTERIAL BLD GAS O2 SATURATION 95.2 % (90.0-100.0); ARTERIAL BLOOD GAS CARBOXY HB 1.2 %sat (0.0-9.0); ARTERIAL BLOOD GAS HCO3 36.7 mmol/L; ARTERIAL BLOOD GAS MET HB 0.9 %sat (0.0-2.0); ARTERIAL BLOOD GAS pH 7.216 (7.350-7.450)
[2016-10-06 22:41] LABS: ARTERIAL BLOOD GAS ALLEN TEST NORMAL; ARTERIAL BLOOD GAS ART SITE LEFT BRACHIAL; ARTERIAL BLOOD GAS DELIVERY BIPAP 20/4; ARTERIAL BLOOD GAS PCO2 90.7 mmHg (35.0-45.0); ARTERIAL DRAW? YES
[2016-10-07 00:18] LABS: ARTERIAL BLOOD GAS HCO3 36.6 mmol/L; ARTERIAL BLOOD GAS PCO2 93.6 mmHg (35.0-45.0); ARTERIAL BLOOD GAS pH 7.201 (7.350-7.450)
[2016-10-07 00:19] LABS: ARTERIAL BLD GAS O2 SATURATION 96.2 % (90.0-100.0); ARTERIAL BLOOD GAS ALLEN TEST NORMAL; ARTERIAL BLOOD GAS ART SITE LEFT BRACHIAL; ARTERIAL BLOOD GAS CARBOXY HB 1.2 %sat (0.0-9.0); ARTERIAL BLOOD GAS DELIVERY BIPAP 20/4; ARTERIAL DRAW? YES
[2016-10-07 05:19] LABS: ARTERIAL BLD GAS O2 SATURATION 94.2 % (90.0-100.0); ARTERIAL BLOOD GAS CARBOXY HB 1.3 %sat (0.0-9.0); ARTERIAL BLOOD GAS HCO3 34.3 mmol/L; ARTERIAL BLOOD GAS MET HB 0.8 %sat (0.0-2.0); ARTERIAL BLOOD GAS PO2 89.2 mmHg (80.0-100); ARTERIAL BLOOD GAS pH 7.253 (7.350-7.450)
[2016-10-07 05:33] LABS: ARTERIAL BLOOD GAS PCO2 77.8 mmHg (35.0-45.0)
[2016-10-07 05:34] LABS: ARTERIAL BLOOD GAS ALLEN TEST NORMAL; ARTERIAL BLOOD GAS ART SITE LEFT BRACHIAL; ARTERIAL BLOOD GAS DELIVERY BIPAP 20/4; ARTERIAL DRAW? YES
[2016-10-07 05:58] LABS: BASOPHIL% 0.1 % (0-2.5); HEMATOCRIT 48.5 % (35.0-45.0); HEMOGLOBIN 14.6 gm/dL (12.0-16.0); LYMPHOCYTE# 0.2 X10e3 (1.0-3.5); LYMPHOCYTE% 3.4 % (17.0-45.0); MEAN CORPUSCULAR HEMOGLOBIN 27.5 PG (28-34); MEAN CORPUSCULAR HGB CONC 30.2 g/dL (30-36); MEAN PLATELET VOLUME 12.1 FL (6.5-11.5); MONOCYTE# 0.1 X10e3 (0-1.0); MONOCYTE% 1.7 % (3.0-12.0); NEUTROPHIL# 6.4 X10e3 (1.5-7.1); NEUTROPHIL% 94.8 % (40-75); PLATELET COUNT 98 X10e3 (140-420); RED BLOOD COUNT 5.33 X10e (3.90-5.30); RED CELL DISTRIBUTION WIDTH 16.2 % (11.0-15.5); WHITE BLOOD COUNT 6.8 X10e3 (4.0-10.5)
[2016-10-07 06:01] LABS: DIFF IND YES
[2016-10-07 06:50] LABS: ALBUMIN SERUM 2.4 g/dL (3.5-5.0); BILIRUBIN,TOTAL 1.1 mg/dL (0.2-2.0); BUN/CREATININE RATIO 49.28; CALCIUM SERUM 6.9 mg/dL (8.4-10.2); CREATININE SERUM 1.4 mg/dL (0.6-1.4); GLOM FILT RATE Estimated 47.9 mL/min (>60); POTASSIUM 4.7 mmol/L (3.5-5.1); PROTEIN TOTAL SERUM 5.2 g/dL (6.0-8.3)
[2016-10-07 06:51] LABS: NUCLEATED RED BLOOD CELL 7 /100 (0)
[2016-10-07 06:52] LABS: ANISOCYTOSIS SL; PLATELET ESTIMATE DECREASED (NORMAL)
[2016-10-07 06:53] LABS: TEAR DROP CELLS PRESENT
[2016-10-07 14:28] LABS: ARTERIAL BLD GAS O2 SATURATION 94.4 % (90.0-100.0); ARTERIAL BLOOD GAS HCO3 36.3 mmol/L; ARTERIAL BLOOD GAS MET HB 0.5 %sat (0.0-2.0); ARTERIAL BLOOD GAS PO2 93.6 mmHg (80.0-100); ARTERIAL BLOOD GAS pH 7.236 (7.350-7.450)
[2016-10-07 14:35] LABS: ARTERIAL BLOOD GAS ALLEN TEST NORMAL; ARTERIAL BLOOD GAS PCO2 85.6 mmHg (35.0-45.0); ARTERIAL DRAW? YES
[2016-10-07 14:36] LABS: ARTERIAL BLOOD GAS ART SITE RIGHT RADIAL; ARTERIAL BLOOD GAS DELIVERY NASAL CANNULA
[2016-10-08 05:13] LABS: ARTERIAL BLOOD GAS CARBOXY HB 1.3 %sat (0.0-9.0); ARTERIAL BLOOD GAS HCO3 35.3 mmol/L; ARTERIAL BLOOD GAS MET HB 0.7 %sat (0.0-2.0); ARTERIAL BLOOD GAS PO2 80.1 mmHg (80.0-100); ARTERIAL BLOOD GAS pH 7.288 (7.350-7.450)
[2016-10-08 05:21] LABS: ARTERIAL BLOOD GAS PCO2 73.8 mmHg (35.0-45.0)
[2016-10-08 05:22] LABS: ARTERIAL BLOOD GAS ALLEN TEST NORMAL; ARTERIAL BLOOD GAS ART SITE LEFT BRACHIAL; ARTERIAL BLOOD GAS DELIVERY BIPAP 20/4; ARTERIAL DRAW? YES
[2016-10-08 05:30] LABS: HEMATOCRIT 47.6 % (35.0-45.0); HEMOGLOBIN 14.4 gm/dL (12.0-16.0); MEAN CELL VOLUME 90.2 FL (83-96); MEAN CORPUSCULAR HEMOGLOBIN 27.3 PG (28-34); MEAN CORPUSCULAR HGB CONC 30.3 g/dL (30-36); MEAN PLATELET VOLUME 11.1 FL (6.5-11.5); RED BLOOD COUNT 5.28 X10e (3.90-5.30); RED CELL DISTRIBUTION WIDTH 16.5 % (11.0-15.5); WHITE BLOOD COUNT 4.7 X10e3 (4.0-10.5)
[2016-10-08 06:21] LABS: BUN/CREATININE RATIO 46.66; CALCIUM SERUM 7.3 mg/dL (8.4-10.2); CREATININE SERUM 1.5 mg/dL (0.6-1.4); GLOM FILT RATE Estimated 44.3 mL/min (>60); POTASSIUM 4.5 mmol/L (3.5-5.1)
[2016-10-08 08:51] LABS: HA AB IGM (HEPPAN) Nonreactive (Nonreactive); HB CORE AB IGM (HEPPAN) Nonreactive (Nonreactive); HB S AG (HEPPAN) Reactive (Nonreactive); HEP C AB (HEPPAN) Nonreactive (Nonreactive); HEP C AB SIGNAL TO CUTOFF 0.08 ratio (<1.00)
[2016-10-08 21:44] LABS: ERYTHROPOIETIN 22.7 mIU/mL (2.6-18.5)
[2016-10-09 04:28] LABS: ARTERIAL BLD GAS O2 SATURATION 94.9 % (90.0-100.0); ARTERIAL BLOOD GAS CARBOXY HB 0.9 %sat (0.0-9.0); ARTERIAL BLOOD GAS HCO3 36.5 mmol/L; ARTERIAL BLOOD GAS MET HB 0.4 %sat (0.0-2.0); ARTERIAL BLOOD GAS PO2 83.3 mmHg (80.0-100); ARTERIAL BLOOD GAS pH 7.354 (7.350-7.450)
[2016-10-09 04:38] LABS: ARTERIAL BLOOD GAS ALLEN TEST NORMAL; ARTERIAL BLOOD GAS ART SITE LEFT RADIAL; ARTERIAL BLOOD GAS DELIVERY BIPAP 20/4; ARTERIAL BLOOD GAS PCO2 65.5 mmHg (35.0-45.0); ARTERIAL DRAW? YES
[2016-10-09 04:41] LABS: BASOPHIL% 0.1 % (0-2.5); HEMATOCRIT 51.5 % (35.0-45.0); HEMOGLOBIN 15.7 gm/dL (12.0-16.0); LYMPHOCYTE# 0.2 X10e3 (1.0-3.5); LYMPHOCYTE% 4.6 % (17.0-45.0); MEAN CELL VOLUME 89.2 FL (83-96); MEAN CORPUSCULAR HEMOGLOBIN 27.2 PG (28-34); MEAN CORPUSCULAR HGB CONC 30.4 g/dL (30-36); MEAN PLATELET VOLUME 9.7 FL (6.5-11.5); MONOCYTE# 0.2 X10e3 (0-1.0); MONOCYTE% 4.8 % (3.0-12.0); NEUTROPHIL# 4.5 X10e3 (1.5-7.1); NEUTROPHIL% 90.5 % (40-75); PLATELET COUNT 91 X10e3 (140-420); RED BLOOD COUNT 5.77 X10e (3.90-5.30); RED CELL DISTRIBUTION WIDTH 16.3 % (11.0-15.5)
[2016-10-09 04:42] LABS: DIFF IND NO
[2016-10-09 04:59] LABS: ALBUMIN SERUM 2.9 g/dL (3.5-5.0); ALKALINE PHOSPHATASE 52 U/L (32-92); ALT (SGPT) 99 U/L (10-40); AST (SGOT) 44 U/L (10-42); BLOOD UREA NITROGEN 53 mg/dL (9-23); BUN/CREATININE RATIO 48.18; CALCIUM SERUM 7.8 mg/dL (8.4-10.2); CARBON DIOXIDE 34 mmol/L (22-31); CHLORIDE 107 mmol/L (100-111); CREATININE SERUM 1.1 mg/dL (0.6-1.4); GLOM FILT RATE Estimated ABOVE60 mL/min (>60); GLUCOSE FASTING 165 mg/dL (70-110); MAGNESIUM 2.3 mg/dL (1.6-3.0); POTASSIUM 4.4 mmol/L (3.5-5.1); PROTEIN TOTAL SERUM 6.1 g/dL (6.0-8.3); SODIUM 145 mmol/L (135-145)
[2016-10-09 12:09] LABS: ARTERIAL BLD GAS O2 SATURATION 98.4 % (90.0-100.0); ARTERIAL BLOOD GAS HCO3 38.8 mmol/L; ARTERIAL BLOOD GAS pH 7.355 (7.350-7.450)
[2016-10-09 12:11] LABS: ARTERIAL BLOOD GAS ALLEN TEST NORMAL; ARTERIAL BLOOD GAS ART SITE LEFT RADIAL; ARTERIAL BLOOD GAS DELIVERY NASAL CANNULA; ARTERIAL BLOOD GAS PCO2 69.6 mmHg (35.0-45.0); ARTERIAL DRAW? YES
[2016-10-10 08:09] LABS: HEMATOCRIT 48.3 % (35.0-45.0); HEMOGLOBIN 14.4 gm/dL (12.0-16.0); MEAN CELL VOLUME 89.7 FL (83-96); MEAN CORPUSCULAR HEMOGLOBIN 26.7 PG (28-34); MEAN CORPUSCULAR HGB CONC 29.8 g/dL (30-36); MEAN PLATELET VOLUME 9.7 FL (6.5-11.5); RED BLOOD COUNT 5.39 X10e (3.90-5.30); RED CELL DISTRIBUTION WIDTH 16.5 % (11.0-15.5); WHITE BLOOD COUNT 3.4 X10e3 (4.0-10.5)
[2016-10-10 08:49] LABS: ALBUMIN SERUM 2.6 g/dL (3.5-5.0); ALKALINE PHOSPHATASE 41 U/L (32-92); ALT (SGPT) 70 U/L (10-40); AST (SGOT) 33 U/L (10-42); BILIRUBIN,TOTAL 1.2 mg/dL (0.2-2.0); BLOOD UREA NITROGEN 29 mg/dL (9-23); BUN/CREATININE RATIO 36.25; CALCIUM SERUM 8.1 mg/dL (8.4-10.2); CARBON DIOXIDE 37 mmol/L (22-31); CHLORIDE 104 mmol/L (100-111); CREATININE SERUM 0.8 mg/dL (0.6-1.4); GLOM FILT RATE Estimated ABOVE60 mL/min (>60); GLUCOSE FASTING 157 mg/dL (70-110); PROTEIN TOTAL SERUM 5.3 g/dL (6.0-8.3); SODIUM 146 mmol/L (135-145)
[2016-10-11 10:30] LABS: HEMATOCRIT 48.1 % (35.0-45.0); HEMOGLOBIN 14.6 gm/dL (12.0-16.0); MEAN CELL VOLUME 88.6 FL (83-96); MEAN CORPUSCULAR HGB CONC 30.5 g/dL (30-36); MEAN PLATELET VOLUME 10.3 FL (6.5-11.5); RED BLOOD COUNT 5.42 X10e (3.90-5.30); RED CELL DISTRIBUTION WIDTH 16.3 % (11.0-15.5); WHITE BLOOD COUNT 3.6 X10e3 (4.0-10.5)
[2016-10-11 11:04] LABS: ALBUMIN SERUM 2.8 g/dL (3.5-5.0); ALKALINE PHOSPHATASE 46 U/L (32-92); ALT (SGPT) 62 U/L (10-40); AST (SGOT) 31 U/L (10-42); BILIRUBIN,TOTAL 1.8 mg/dL (0.2-2.0); BLOOD UREA NITROGEN 25 mg/dL (9-23); BUN/CREATININE RATIO 31.25; CALCIUM SERUM 8.2 mg/dL (8.4-10.2); CARBON DIOXIDE 37 mmol/L (22-31); CHLORIDE 97 mmol/L (100-111); CREATININE SERUM 0.8 mg/dL (0.6-1.4); GLOM FILT RATE Estimated ABOVE60 mL/min (>60); GLUCOSE FASTING 234 mg/dL (70-110); PROTEIN TOTAL SERUM 5.7 g/dL (6.0-8.3); SODIUM 139 mmol/L (135-145)
[2016-10-12 06:09] LABS: HEMATOCRIT 47.3 % (35.0-45.0); HEMOGLOBIN 14.6 gm/dL (12.0-16.0); MEAN CELL VOLUME 87.6 FL (83-96); MEAN CORPUSCULAR HGB CONC 30.9 g/dL (30-36); MEAN PLATELET VOLUME 9.2 FL (6.5-11.5); RED BLOOD COUNT 5.4 X10e (3.90-5.30); RED CELL DISTRIBUTION WIDTH 15.6 % (11.0-15.5); WHITE BLOOD COUNT 3.6 X10e3 (4.0-10.5)
[2016-10-12 06:46] LABS: BLOOD UREA NITROGEN 19 mg/dL (9-23); BUN/CREATININE RATIO 31.66; CALCIUM SERUM 8.8 mg/dL (8.4-10.2); CARBON DIOXIDE 43 mmol/L (22-31); CHLORIDE 90 mmol/L (100-111); CREATININE SERUM 0.6 mg/dL (0.6-1.4); GLOM FILT RATE Estimated ABOVE60 mL/min (>60); GLUCOSE FASTING 100 mg/dL (70-110); POTASSIUM 4.1 mmol/L (3.5-5.1); SODIUM 141 mmol/L (135-145)
[2016-10-13] MEDS ORDERED: LOPRESSOR PO (13:55)
[2016-10-13] MEDS ORDERED: ACETAMINOPHEN650 M3 PO (13:55)
[2016-10-13] MEDS ORDERED: FUROSEMIDE40 MG PO (13:56)
[2016-10-13] MEDS ORDERED: LISINOPRIL10 MG PO (13:57)
[2016-10-13] MEDS ORDERED: MEDROL DOSEPAK4 MG PO (13:57)
[2016-10-13] MEDS ORDERED: ASPIRIN81 M2 PO (13:57)
[2016-10-13] MEDS ORDERED: OXYGEN INH (14:00)
== END 2016-10-13 15:35 | disposition home or self-care (01) | DRG 280 ==
LOC: CED 12:08 → CEDOF 13:45 → C3A PCU 15:11 → CICCU3 10-06 15:13 → C3A PCU 10-09 16:24
PROVIDERS: Emergency Medicine; Family Medicine; Internal Medicine; Internal Medicine Cardiovascular Disease; Internal Medicine Hematology; Internal Medicine Hematology & Oncology; Internal Medicine Pulmonary Disease
PROC: B246ZZ4 Ultrasonography of Right and Left Heart, Transesophageal (ICD-10-PCS; 2016-10-05)
PROC: B32TYZZ Computerized Tomography (CT Scan) of Left Pulmonary Artery using Other Contrast (ICD-10-PCS; 2016-10-05)
PROC: B32SYZZ Computerized Tomography (CT Scan) of Right Pulmonary Artery using Other Contrast (ICD-10-PCS; 2016-10-05)
PROC: 4A023N8 Measurement of Cardiac Sampling and Pressure, Bilateral, Percutaneous Approach (ICD-10-PCS; principal; 2016-10-06)
PROC: B211YZZ Fluoroscopy of Multiple Coronary Arteries using Other Contrast (ICD-10-PCS; 2016-10-06)
PROC: B215YZZ Fluoroscopy of Left Heart using Other Contrast (ICD-10-PCS; 2016-10-06)
PROC: 3E0234Z Introduction of Serum, Toxoid and Vaccine into Muscle, Percutaneous Approach (ICD-10-PCS; 2016-10-13)
PROC: 3E0234Z Introduction of Serum, Toxoid and Vaccine into Muscle, Percutaneous Approach (ICD-10-PCS; 2016-10-13)
DX: I21.4 Non-ST elevation (NSTEMI) myocardial infarction (principal); J96.01 Acute respiratory failure with hypoxia; G92 Toxic encephalopathy; I27.2 Other secondary pulmonary hypertension; D69.6 Thrombocytopenia, unspecified; I11.0 Hypertensive heart disease with heart failure; I50.32 Chronic diastolic (congestive) heart failure; J45.901 Unspecified asthma with (acute) exacerbation; D75.1 Secondary polycythemia; I36.1 Nonrheumatic tricuspid (valve) insufficiency; Z82.49 Family history of ischemic heart disease and other diseases of the circulatory system; F41.9 Anxiety disorder, unspecified; J20.9 Acute bronchitis, unspecified; Z23 Encounter for immunization
CPT/HCPCS: 36600; 71010; 71275; 76700; 80048; 80053; 80061; 80074; 80076; 81270; 82550; 82553; 82668; 82803; 82810; 82947; 83021; 83735; 83880; 84484; 85025; 85027; 85379; 85610; 85730; 87040; 87804; 90688; 90732; 93005; 93306; 93308; 94640; 94660; 94760; 94761; 96374; 97162; 97166; 99291; C1769; C1887; G0009; J0153; J0456; J0610; J1265; J1644; J1650; J1815; J1940; J2250; J2270; J2310; J2370; J2550; J2920; J2930; J3010; Q9967